=== PATIENT | male | born 1955 | race Caucasian/White ===

== ENCOUNTER 2022-01-08 10:15 | Day surgery (SDC) | payer MEDICARE, OTHER ==
[~2022-01-08 10:15] MED LIST: Lactated Ringers 1,000 ML IV SCH; Midazolam 1 MG/ML 2 ML SDV ONE; Propofol 200 MG/20 ML SDV ONE; Sodium Chloride 0.9% 10 ML Syringe FLUSH PRN
[2022-01-08] MEDS ORDERED: fentaNYL 100 MCG/2 ML SDV ONE (11:36)
[2022-01-08] MEDS ORDERED: Propofol 200 MG/20 ML SDV ONE (11:36)
[2022-01-08] MEDS ORDERED: Midazolam 1 MG/ML 2 ML SDV ONE (11:36)
== END 2022-01-08 13:10 | disposition home or self-care (01) ==
LOC: LL.SDS 10:15
PROVIDERS: ATTEND Surgery
DX: K59.00 Constipation, unspecified (principal); R19.7 Diarrhea, unspecified; J45.909 Unspecified asthma, uncomplicated; E78.5 Hyperlipidemia, unspecified; K21.9 Gastro-esophageal reflux disease without esophagitis; G47.00 Insomnia, unspecified; E03.9 Hypothyroidism, unspecified; G47.33 Obstructive sleep apnea (adult) (pediatric); Z79.899 Other long term (current) drug therapy; Z87.891 Personal history of nicotine dependence; Z80.0 Family history of malignant neoplasm of digestive organs; Z86.718 Personal history of other venous thrombosis and embolism; Z79.890 Hormone replacement therapy; Z79.01 Long term (current) use of anticoagulants
CPT/HCPCS: J2250; J2704; J3010; J7120